=== PATIENT | male | born 1965 | race Asian ===

== ENCOUNTER 2020-03-18 12:57 | Emergency (ER) | payer OTHER ==
[~2020-03-18] VITALS: Ht 172.7 cm; Wt 68.0 kg
--- NOTE | 2020-03-18 13:45 | NUR ---
placed in hallway. Dr Zhu at bedside
[2020-03-18 13:46] VITALS: BP_SYST 124
--- NOTE | 2020-03-18 14:10 | NUR ---
C/O LT ANKLE INJURY,REQUIRES SPLINT, PT CALM, ALERT, RESP UNLABORED, SKIN WARM AND DRY. COMMUNICATES CLEARLY IN FULL COMPLETE SENTENCES, SKIN WARM AND DRY. BLE PULSES PALPABLE, CAP REFILL <3 SECS. CIRULATION AND SENSATION INTACT
[2020-03-18 15:30] VITALS: BP_SYST 121
--- NOTE | 2020-03-18 15:33 | NUR ---
Patient given written and verbal discharge instructions and verbalizes understanding. ER MD discussed with patient the results and treatment provided. Patient in stable condition. ID arm band removed. Rx of naprosyn given. Patient educated on pain management and to follow up with PMD. Pain Scale 0/10 Opportunity for questions provided and answered. Medication side effect fact sheet provided.
== END 2020-03-18 15:28 | disposition home or self-care (01) ==
LOC: SED 12:57
DX: S92.002A Unspecified fracture of left calcaneus, initial encounter for closed fracture (principal); X58.XXXA Exposure to other specified factors, initial encounter; Y93.39 Activity, other involving climbing, rappelling and jumping off; Y92.89 Other specified places as the place of occurrence of the external cause; Y99.8 Other external cause status
CPT/HCPCS: 99284